=== PATIENT | male | born 1995 | race Caucasian/White ===

== ENCOUNTER 2024-09-20 00:04 | Emergency (ER) | payer OTHER ==
[~2024-09-20] VITALS: Ht 175.3 cm; Wt 113.6 kg
[2024-09-20 00:13] VITALS: TEMP 97.6
[2024-09-20] MEDS: METHOCARBAMOL 1,000 MG/10 ML VIAL IV ONE (00:20)
[2024-09-20] MEDS: KETOROLAC 30 MG/ML 1ML VIAL IV ONE (00:21)
[2024-09-20] MEDS: diazePAM 5MG TABLET PO ONE (00:58)
[2024-09-20 03:18] LABS: BASO % 0.3 % (0.0-1.0); EOS # 0.1 10^3/uL (0.0-0.5); EOS % 1.5 % (0.0-3.0); HEMATOCRIT 43.8 % (42.0-52.0); HEMOGLOBIN 15.5 g/dl (13.5-17.5); LYMPH # 1.4 10^3/uL (1.5-5.0); LYMPH % 19.9 % (24.0-44.0); MEAN CORPUSCULAR HEMOGLOBIN 31.1 pg (27.0-33.0); MEAN CORPUSCULAR HGB CONC 35.4 g/dl (32.0-36.5); MEAN CORPUSCULAR VOLUME 87.8 fl (80.0-96.0); MONO # 0.3 10^3/uL (0.0-0.8); MONO % 3.6 % (2.0-8.0); NEUTROPHILS # 5.3 10^3/uL (1.5-8.5); NEUTROPHILS % 74.1 % (36.0-66.0); PLATELET COUNT, AUTOMATED 200 10^3/uL (150-450); RED BLOOD COUNT 4.99 10^6/uL (4.30-6.10); WHITE BLOOD COUNT 7.2 10^3/uL (4.0-10.0)
[2024-09-20 03:37] LABS: C REACTIVE PROTEIN QUANTITATIV < 0.50 MG/DL (<1.0)
[2024-09-20 03:48] LABS: CPK CREATINE PHOSPHOKINASE 298 U/L (46-171)
[2024-09-20] MEDS: oxyCODONE 5MG TAB PO ONE (05:20)
[2024-09-20 07:00] VITALS: O2SAT 96
[2024-09-20 07:45] VITALS: BP 133/63
[2024-09-20] MEDS ORDERED: NAPR-837 PO (09:50)
[2024-09-20] MEDS ORDERED: MEDR4PAK PO (09:50)
[2024-09-20] MEDS ORDERED: CYCL5TAB4 PO (09:50)
[2024-09-20] MEDS ORDERED: physical therapy (09:51)
== END 2024-09-20 10:10 | disposition home or self-care (01) ==
LOC: M ED 00:04
DX: M51.26 Other intervertebral disc displacement, lumbar region (principal); Z79.899 Other long term (current) drug therapy
CPT/HCPCS: 72131; 72148; 82550; 85025; 86140; 96374; 96375; 99285; J1100; J1885; J2800